=== PATIENT | female | born 1960 | race Caucasian/White ===

== ENCOUNTER 2023-05-08 01:54 | Emergency (ER) | payer OTHER, SELFPAY ==
[2023-05-08 02:09] VITALS: BP 159/97
[2023-05-08 03:35] VITALS: BP 134/90
[2023-05-08 03:43] VITALS: BMI 22.0
[2023-05-08 06:14] VITALS: BP 134/76
--- NOTE | 2023-05-08 06:31 | ED.GENMED ---
History of Present Illness
General
Chief Complaint: Musculo-Skeletal Complaint
Source: patient
Time Seen by Provider: 05/08/23 06:03
Travel History
Have you had any contact with someone who has COVID-19?: No
Do you have any symptoms of coronavirus? Fever > 100 degrees, chills, cough, shortness of breath, sore throat, loss of taste or smell, muscle aches, or headache?: No
History of Present Illness
History of Present Illness:
62-year-old female who presents with neck discomfort has been ongoing for about 6 to 7 weeks. 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 She has
been doing massage and stretching. She also states that she was recently on vacation and her significant other noticed her neck was pulsatile. She followed up with her doctor and has x-rays and ultrasound planned for next week. She presents
because this morning it seemed a little worse and she was not sure she has some tingling in her arm. She states now it seems better and mild. No motor weakness. No chest pain. No shortness of breath.
Past History
Past History
ED Past Medical History: None
Social History
Tobacco: Non-smoker
Phy Exam
Physical Exam
Physical Exam:
CONSTITUTIONAL Patient alert and oriented to person, place and time. Well-appearing. Vital signs reviewed.
HEAD atraumatic, normocephalic.
EYES eyelids normal to inspection, Pupils equally round and reactive to light, Extraocular muscles intact, Conjunctiva normal, Sclera normal.
NECK normal range of motion, Trachea midline, no jugular venous distention. No midline tenderness. Mild tenderness in the suboccipital region. No meningismus.
RESPIRATORY CHEST No respiratory distress noted, Chest expansion equal
Cardiovascular heart regular, no murmurs, neck with no bruits
BACK normal inspection, no obvious deformities
UPPER EXTREMITY range of motion normal, Motor strength normal, no cyanosis, no edema.
LOWER EXTREMITY range of motion normal, Motor strength normal, no cyanosis, no edema.
NEURO Speech normal, No focal motor deficits, Benedict coma scale 15, Memory normal, Cranial Nerves intact to screening exam.
SKIN skin warm, dry, and normal in color.
PSYCHIATRIC patient oriented to person place and time, Normal affect.
Course
Vital Signs
Initial and Last Documented VS:
Initial Vital Signs
Temp Pulse Resp BP Pulse Ox
97.9 F 75 18 159/97 100
05/08/23 02:09 05/08/23 02:09 05/08/23 02:09 05/08/23 02:09 05/08/23 02:09
Last Documented Vital Signs
Temp Pulse Resp BP Pulse Ox
97.9 F 72 16 134/76 98
05/08/23 02:09 05/08/23 06:14 05/08/23 06:14 05/08/23 06:14 05/08/23 06:14
MDM/Problems Addressed
MDM/Problems Addressed:
Neck strain
*Pulse Oximetry
Patient hypoxic: no
*Critical Care Note
Total Time (30-74mins, 75-104mins- exclusive of procedures): Not Applicable
Data Reviewed
Source: patient
Further Testing Considered But Not Given:
Considered imaging but no concern for bony or vascular issue
Patient Management
Escalation/DeEscalation of care consider admission/obs:
As well. Suspect muscular event given the fact that this been ongoing for some time she continues to do yoga. No clinical concern for vascular event or bony injury. Outpatient x-rays and ultrasound as planned
ED Attending Note
-
Portions of this chart may have been created with voice recognition software.� Occasional wrong word or��sound alike� substitutions may have occurred due to the inherent limitations of voice recognition software.
Discharge Plan
Departure
Patient Disposition: Home (Routine Discharge)
Date of Disposition: 05/08/23
Time of Disposition: 06:31
Patient with high blood pressure during this ER visit?: No
Discharge Problem:
Neck pain
Instructions: Neck pain
Prescriptions:
New
prednisone 10 mg Tablet
See Rx Instructions .ROUTE .COMPLEX Qty: 30 0RF
Rx Instructions:
Take By Mouth:
40 mg daily x3 days, 30 mg daily x3 days,
20 mg daily x3 days, 10 mg daily x3 days.
Referrals:
Keily Pérez CRNP [Family Provider] -
Activity Restrictions/Additional Instructions:
Please see your doctor as planned in follow-up. Return for motor weakness, worsening symptoms, fevers or any other concerns.
Interventions
Interventions:
*Risk Screen - Suicide Last Done: 05/08/23 06:34
*General Assessment Last Done: 05/08/23 03:35
*Neglect/Abuse Screening Last Done: 05/08/23 03:35
ED- Fall Risk Assessment Last Done: 05/08/23 03:35
*ED COVID-19 Vaccine History Last Done: 05/08/23 03:35
*Nursing Disposition Last Done: 05/08/23 06:34
ED-Musculoskeletal Assessment Last Done: 05/08/23 03:35
Discharge Date and Time
Discharge Date/Time: 05/08/23 06:37
== END 2023-05-08 06:37 | disposition home or self-care (01) ==
LOC: EMR 01:54
PROVIDERS: EMERGENCY PHYSICIAN Emergency Medicine; FAMILY PHYSICIAN Registered Nurse
DX: M54.2 Cervicalgia (principal)
CPT/HCPCS: 99282

== ENCOUNTER → 2023-05-11 11:19 | Outpatient (REF) | payer OTHER, SELFPAY | LOC: RAD 11:19 | PROVIDERS: ATTENDING PHYSICIAN Registered Nurse | DX: R09.89 Other specified symptoms and signs involving the circulatory and respiratory systems (principal); M43.6 Torticollis | CPT/HCPCS: 72052; 93880 ==

== ENCOUNTER → 2023-09-12 10:13 | Outpatient (REF) | payer OTHER, SELFPAY | LOC: HWWDC 10:13 | PROVIDERS: ATTENDING PHYSICIAN Obstetrics & Gynecology Gynecology; FAMILY PHYSICIAN Family Medicine | DX: Z12.31 Encounter for screening mammogram for malignant neoplasm of breast (principal) | CPT/HCPCS: 77063; 77067 ==

== ENCOUNTER → 2023-11-07 13:52 | Outpatient (REF) | payer OTHER, SELFPAY | LOC: HWRAD 13:52 | PROVIDERS: ATTENDING PHYSICIAN Family Medicine | DX: R19.00 Intra-abdominal and pelvic swelling, mass and lump, unspecified site (principal) | CPT/HCPCS: 76705 ==

== ENCOUNTER → 2024-06-25 08:55 | Outpatient (REF) | payer OTHER, SELFPAY | LOC: RAD 08:55 | PROVIDERS: ATTENDING PHYSICIAN Obstetrics & Gynecology Gynecology | DX: Z78.0 Asymptomatic menopausal state (principal) | CPT/HCPCS: 77080 ==

== ENCOUNTER → 2024-09-18 12:28 | Outpatient (REF) | payer OTHER, SELFPAY | LOC: WDC 12:28 | PROVIDERS: ATTENDING PHYSICIAN Obstetrics & Gynecology Gynecology; FAMILY PHYSICIAN Family Medicine | DX: Z12.31 Encounter for screening mammogram for malignant neoplasm of breast (principal) | CPT/HCPCS: 77063; 77067 ==

== ENCOUNTER → 2024-11-18 10:00 | Outpatient (REF) | payer OTHER, SELFPAY | LOC: RCS 10:00 | PROVIDERS: ATTENDING PHYSICIAN Internal Medicine Cardiovascular Disease; FAMILY PHYSICIAN Family Medicine | DX: R42 Dizziness and giddiness (principal); R00.1 Bradycardia, unspecified; E78.00 Pure hypercholesterolemia, unspecified | CPT/HCPCS: 93225; 93226 ==

== ENCOUNTER → 2024-12-07 13:55 | Outpatient (REF) | payer OTHER, SELFPAY | LOC: HWRCS 13:55 | PROVIDERS: ATTENDING PHYSICIAN Internal Medicine Cardiovascular Disease; FAMILY PHYSICIAN Family Medicine | DX: R42 Dizziness and giddiness (principal); R00.1 Bradycardia, unspecified; E78.00 Pure hypercholesterolemia, unspecified | CPT/HCPCS: 93306 ==